=== PATIENT | male | born 1995 | race Two or more races ===

== ENCOUNTER 2019-10-11 11:29 | Emergency (ER) | payer OTHER ==
[~2019-10-11] VITALS: Ht 175.3 cm; Wt 90.0 kg
[2019-10-11] MEDS ORDERED: ONDANSETRON HCL 4MG/2ML INJ IV STA (11:52)
[2019-10-11] MEDS ORDERED: SODIUM CHLORIDE 0.9% 1,000 ML IV ONE (11:52)
[2019-10-11] MEDS ORDERED: LORAZEPAM 2MG/ML CPJ IV ONE (12:00)
[2019-10-11 12:55] LABS: BASOPHILS % 0.9 % (0.0-2.0); EOSINOPHILS % 0.1 % (0.0-5.0); HEMATOCRIT. 40.4 % (42.0-52.0); HEMOGLOBIN. 14.2 g/dL (14.0-18.0); LYMPHOCYTES % 7.4 % (20.0-50.0); MEAN CORPUSCULAR HEMOGLOBIN 30.6 pg (28.0-32.0); MEAN CORPUSCULAR VOLUME 86.9 fL (80.0-94.0); MEAN PLATELET VOLUME 8.2 fl (7.4-10.4); NEUTROPHILS % 88.6 % (40.0-76.0); PLATELET 298 x1000/uL (130-400); RED BLOOD CELL COUNT 4.64 mill/uL (4.7-6.1); RED CELL DISTRIBUTION WIDTH 13.7 % (11.6-14.6)
[2019-10-11 12:57] LABS: CHLORIDE 106 mEq/L (98-107)
[2019-10-11 13:00] LABS: ETHANOL BLOOD < 10 mg/dL
[2019-10-11 13:39] VITALS: BP 122/81
== END 2019-10-11 13:44 | disposition home or self-care (01) ==
LOC: ER 11:29
DX: F11.23 Opioid dependence with withdrawal (principal); R56.9 Unspecified convulsions; T40.2X5A Adverse effect of other opioids, initial encounter; Y92.143 Cell of prison as the place of occurrence of the external cause
CPT/HCPCS: 36415; 80053; 80320; 85025; 93005; 96361; 96374; 96375; 99284; J2060; J2405; J7030; G0480